=== PATIENT | male | born 1965 | race Caucasian/White ===

== ENCOUNTER → 2021-12-23 | Outpatient (CLI) | payer BC ==
[~2021-12-23] MED LIST: SOTROVIMAB 500 MG in IV DEXTROSE 5% 50 ML IV ONE
[2021-12-23 14:15] VITALS: BP 111/75
[2021-12-23 14:25] VITALS: BP 135/74
[2021-12-23 14:30] VITALS: BP 127/72
--- NOTE | 2021-12-23 14:38 | RAD ---
EXAM: Chest, single view. HISTORY: Covid 19. COMPARISON: None. FINDINGS: Frontal views of the chest are obtained. There is no infiltrate, pleural effusion or pneumo thorax. The heart is normal in size. IMPRESSION: No acute pulmonary finding. Electronically signed by: Gabriela Dixon MD (12/23/2021 2:36 PM) [id number]
[2021-12-23 14:43] VITALS: BP 119/81
[2021-12-23 15:31] VITALS: BP 119/69
== END ==
LOC: OPSVCOP 10:46
PROVIDERS: ATTEND Internal Medicine Pulmonary Disease
DX: U07.1 COVID-19 (principal)
CPT/HCPCS: 71045; J7060; M0247; Q0247